=== PATIENT | male | born 1990 | race African-American/Black ===

== ENCOUNTER 2016-07-30 17:05 | Emergency (ER) | payer OTHER ==
[~2016-07-30 17:05] MED LIST: ACETAMINOPHEN-120 ML; ALBUTEROL17 G1 INH; BACTRIM DS TABL1 TA1 PO; BENZONATATE PO; CIPRO PO; DICLOFENAC PO; ERYTHROMYCIN250 MG PO; FLEXERIL PO; HYDROMET SYRUP480 ML PO; LORTAB 10-5001 EACH PO; MEDROL PO; METRONIDAZOLE PO; NO MEDICATIONS; ROBITUSSIN A-C-S1 ML PO; TYLENOL #3 PO; VOLTAREN75 MG PO; ZITHROMAX; ZITHROMAX PO; ZOFRAN ODT4 MG PO
== END 2016-07-30 17:32 | disposition home or self-care (01) ==
LOC: SED 17:05
DX: J01.90 Acute sinusitis, unspecified (principal); F17.210 Nicotine dependence, cigarettes, uncomplicated; Z98.890 Other specified postprocedural states; Z80.0 Family history of malignant neoplasm of digestive organs; Z79.899 Other long term (current) drug therapy
CPT/HCPCS: 99282

== ENCOUNTER 2016-08-06 22:58 | Emergency (ER) | payer OTHER | END 2016-08-06 23:00 | disposition left against medical advice (07) | LOC: SED 22:58 | DX: Z53.21 Procedure and treatment not carried out due to patient leaving prior to being seen by health care provider (principal) ==

== ENCOUNTER 2016-08-07 18:27 | Emergency (ER) | payer OTHER ==
--- NOTE | ~2016-08-07 | CR63 ---
[facility] A Service of [facility] RADIOLOGY TEXT RESULTS PATIENT: HOMER STOCKTON LOCATION: SED : 88 UNIT #: [id number] AGE: [address]: Estefani Cavazos SEX: M ORDER DR: [id number] [place] [id number] E MR#: [id number] Acc #: [id number] NAME: HOMER STOCKTON : 1990 SEX: M STUDY DATE/TIME: 08/07/2016 19:13 UNIT: SED ROOM: STUDY DESCRIPTION: CR Chest 2 View Attending Physician: Estefani Cavazos P.A.-C. Ordering Physician: Estefani Cavazos P.A.-C. Primary Care Physician: Primary Care Physician No MEDICAL IMAGING REPORT This report is preliminary unless electronic signature is present. EXAM Chest x-ray 2 views HISTORY Cough and congestion for 2 months. Complains of weakness, fatigue, chills, nausea and dizziness. COMMENTS Two views of the chest are reviewed. Comparison study is from 07/04/10. There is no pleural effusion. Heart size is normal. There is concern for some patchy airspace disease in the right upper lobe, new from previous. Clinical correlation and follow up is recommended to ensure resolution. Given history and age group on presentation, this is probably infectious or inflammatory in etiology, but otherwise nonspecific. No pneumothorax or congestive failure. IMPRESSION I believe there is patchy opacity/airspace disease right upper lobe. Given history and age group, this is probably infectious or inflammatory in etiology, such as a patchy area of pneumonia. Clinical correlation and follow up to complete resolution is recommended. Dictated by... Jessie Taylor M.D. THIS IS AN ELECTRONICALLY VERIFIED REPORT Jessie Taylor M.D. at 08/08/2016 10:04 AM CAROL/corinne TD: 08/08/2016 02:36 [facility] A Service of [facility] RADIOLOGY TEXT RESULTS PATIENT: HOMER STOCKTON [facility]: [id number] : [birth year] UNIT #: [id number] AGE: [address]: Estefani Cavazos SEX: M ORDER DR: JOB #: [id number] MEDICAL IMAGING REPORT Page 1 of 1
[2016-08-07 19:38] LABS: BASOPHIL% 0.7 % (0-2.5); EOSINOPHIL# 0.1 X10e3 (0-0.7); EOSINOPHIL% 2.2 % (0.0-7.0); HEMATOCRIT 43.2 % (38.0-50.0); HEMOGLOBIN 15.1 gm/dL (13.0-16.0); MEAN CELL VOLUME 96.1 FL (83-96); MEAN CORPUSCULAR HEMOGLOBIN 33.6 PG (28-34); MONOCYTE# 0.6 X10e3 (0-1.0); MONOCYTE% 10.7 % (3.0-12.0); NEUTROPHIL# 2.7 X10e3 (1.5-7.1); NEUTROPHIL% 49.4 % (40-75); PLATELET COUNT 199 X10e3 (140-420); RED BLOOD COUNT 4.49 X10e (3.90-5.60); RED CELL DISTRIBUTION WIDTH 12.6 % (11.0-15.5); WHITE BLOOD COUNT 5.5 X10e3 (4.0-10.5)
[2016-08-07 19:39] LABS: DIFF IND NO
[2016-08-07 19:54] LABS: BUN/CREATININE RATIO 8.18; CALCIUM SERUM 9.1 mg/dL (8.4-10.2); CREATININE SERUM 1.1 mg/dL (0.6-1.4); GLOM FILT RATE Estimated 106.1 mL/min (>60); POTASSIUM 3.3 mmol/L (3.5-5.1)
== END 2016-08-07 20:05 | disposition home or self-care (01) ==
LOC: SED 18:27
PROVIDERS: Physician Assistant
DX: J18.9 Pneumonia, unspecified organism (principal); F17.210 Nicotine dependence, cigarettes, uncomplicated; Z98.890 Other specified postprocedural states; Z88.0 Allergy status to penicillin
CPT/HCPCS: 71020; 80048; 85025; 86308; 94640; 99283